=== PATIENT | female | born 1955 | race Caucasian/White ===

== ENCOUNTER → 2022-02-03 09:43 | Outpatient (BNVA) | payer MEDICARE, SELFPAY | PROVIDERS: Visit Provider Family Medicine Adult Medicine | DX: I10 Essential (primary) hypertension (principal); Z13.6 Encounter for screening for cardiovascular disorders; Z13.29 Encounter for screening for other suspected endocrine disorder; R42 Dizziness and giddiness | CPT/HCPCS: 80053; 83036; 84443; 85025 ==

== ENCOUNTER → 2022-02-09 11:01 | Outpatient (BNVA) | payer MEDICARE, SELFPAY | PROVIDERS: PCP Family Medicine Adult Medicine; Visit Provider Surgery | DX: K21.9 Gastro-esophageal reflux disease without esophagitis (principal); Z12.11 Encounter for screening for malignant neoplasm of colon | CPT/HCPCS: 99203 ==

== ENCOUNTER 2022-02-21 06:00 | Outpatient (RCR) | payer MEDICARE, SELFPAY | END 2022-02-27 23:59 | disposition home or self-care (01) | LOC: SPT 06:00 | PROVIDERS: PCP Family Medicine Adult Medicine; Referring Provider Family Medicine Adult Medicine; Visit Provider Family Medicine Adult Medicine | DX: M54.50 Low back pain, unspecified (principal); G89.29 Other chronic pain | CPT/HCPCS: 97161 ==

== ENCOUNTER 2022-03-31 06:00 | Outpatient (RCR) | payer MEDICARE, SELFPAY | END 2022-04-29 23:59 | disposition home or self-care (01) | LOC: SPT 06:00 | PROVIDERS: PCP Family Medicine Adult Medicine; Referring Provider Family Medicine Adult Medicine; Visit Provider Family Medicine Adult Medicine | DX: M54.50 Low back pain, unspecified (principal); G89.29 Other chronic pain | CPT/HCPCS: 97161 ==

== ENCOUNTER 2022-04-22 06:08 | Day surgery (SDC) | payer MEDICARE, SELFPAY ==
[2022-04-20 12:26] VITALS: BMI 38.4
[2022-04-22 06:30] VITALS: BP 190/99; PULSE 104; RESP 18; TEMP 36.3; O2SAT 98
[2022-04-22] MEDS: sodium chloride 0.9% 1,000 ML 30 ML IV (06:38)
--- NOTE | 2022-04-22 06:51 | ANES.PREANE2 ---
Pre-Anesthetic Assessment Height/Weight: Height 1.57 m Weight 95.254 kg Temp Pulse Resp BP Pulse Ox O2 Del Method 97.4 F L 104 H 18 190/99 98 04/22/22 06:30 04/22/22 06:30 04/22/22 06:30 04/22/22 06:30 04/22/22 06:30 04/22/22 06:30 Operation Date: 04/22/22 07:00 Proposed Procedures p EGD and colonscopy 90744, 27593,K21.9,Z12.11(Not Applicable) - Everett Arvizu DO s Colonoscopy(Not Applicable) - Everett Arvizu DO Last intake: Intake Last Liquid Date 04/21/22 Last Liquid Time 22:00 Last Solid Date 04/20/22 Last Solid Time 20:30 Social quit gum 3 months Exam alert, oriented x 3, clear to auscultation bilaterally and regular rate & rhythm Airway Submandibular: within normal limits Cervical ROM: within normal limits Mallampati: Class II History/ROS No significant history except as noted and No significant complaints Pulmonary Shortness of Breath sob with rest. with anxiety, exertion. for 1 month CV/HEM Murmur epigastric chest pain, dr rodriguez thinks it is reflux reflated. at rest None reported Hepatic None reported GI acid reflux, epigastric Metabolic Morbid Obesity [facility] [place] None reported Neuropsych Anxiety Anesthetic Plan ASA status: 3 Anesthesia: Anesthesia Evaluation and MAC Risk of > 500 ml blood loss (7ml/kg in children): Yes, adequate IV access and fluids planned Medications/Allergies Home Medications Medication Instructions Recorded Confirmed Last Taken Type acetaminophen 650 mg 650 mg PO Q8H PRN pain #90 tabs 02/02/22 04/20/22 Unknown Rx tablet,extended release lisinopril 20 mg tablet 20 mg PO BID Hypertension 90 days 02/02/22 04/20/22 04/21/22 Rx #180 tabs hydrochlorothiazide 25 mg tablet 25 mg PO DAILY PRN fluid 03/29/22 04/20/22 Unknown History ketoconazole 2 % shampoo 1 applic topical .2x weekly #120 mL 03/29/22 04/20/22 04/21/22 Rx mometasone 0.1 % topical solution 1 applic topical DAILY #60 mL 03/29/22 04/20/22 Unknown Rx nortriptyline 10 mg capsule 10 mg PO BEDTIME 04/21/22 04/22/22 04/18/22 History pantoprazole 40 mg tablet,delayed 40 mg PO BID 04/21/22 04/21/22 04/21/22 History release (Protonix) Allergies Allergy/AdvReac Type Severity Reaction Status Date / Time pregabalin [From Lyrica] Allergy Severe ADR-Halluci Verified 03/29/22 14:06 nating carisoprodol [From Soma] Allergy Intermediate ADR-Nausea Verified 03/29/22 14:06 ibuprofen Allergy Unknown Unknown Verified 03/29/22 14:06 Current Medications Generic Name Dose Route Start Last Admin Trade Name Freq PRN Reason Stop Dose Admin Sodium Chloride 1,000 mls @ 30 mls/hr 04/22/22 06:15 04/22/22 06:38 Sodium Chloride 0.9% IV 04/23/22 06:14 30 mls/hr .Q24H RAYMUNDO Administration PFSH Anesthesia Medical History Anxiety and depression Cataract Chronic back pain Chronic low back pain without sciatica Diabetes mellitus, new onset Hemoglobin A1c 6.8 on 02/03/2022. Dizziness and giddiness GERD (gastroesophageal reflux disease) Hx of basal cell carcinoma Hx of basal cell carcinoma nose Hypertension Plaque psoriasis TMJ (dislocation of temporomandibular joint) Upper back pain on right side Surgical History H/O dilation and curettage History of lumpectomy of both breasts Hx of appendectomy Family History Sister Cancer breast and bone, and brain Father CAD (coronary artery disease) Mother Alzheimer disease Spastic esophagus Social History Smoking and tobacco status: former smoker Quit status (tobacco): has quit using tobacco Year quit tobacco: 2018 Alcohol intake: never Lives independently: Yes Marital status: / Number of children: 3 Current occupational status: retired and disabled Data Anesthesia Cardiac Studies: No Data to Display
--- NOTE | 2022-04-22 06:56 | ECG_ITS ---
[facility] Test Date: 2022-04-22 Pat Name: Gabriella Coyle Department: Room: Gender: Female Billet Heater: : 1955 Requested By: Laureen Park Order Number: [id number] Naya MD: Linette Tyson M.D. Measurements Intervals [place] Rate: 77 P: 54 PA: 159 QRS: -5 QRSD: 100 T: 21 QT: 373 QTc: 424 Interpretive Statements SINUS RHYTHM POSSIBLE LEFT ATRIAL ENLARGEMENT [-0.1mV P-WAVE IN V1/V2] INCOMPLETE RIGHT BUNDLE BRANCH BLOCK [90+ ms QRS DURATION, TERMINAL R IN V1/V2, 40+ ms S IN I/aVL/V4/V5/V6] No previous ECG available for comparison Electronically Signed On 04-22-2022 16:30:48 CDT by Linette Tyson M.D. [id number]
--- NOTE | 2022-04-22 06:58 | PM.HP ---
Providers/Chief Complaint Primary Care Provider: Chavez Interiano MD Chief Complaint: gastro-esophageal reflux disease w/o esophagitis History of Present Illness Gabriella Coyle is a 67 year old female here for EGD and colonoscopy Medications/Allergies Home Medications Medication Instructions Recorded Confirmed Last Taken Type acetaminophen 650 mg 650 mg PO Q8H PRN pain #90 tabs 02/02/22 04/20/22 Unknown Rx tablet,extended release lisinopril 20 mg tablet 20 mg PO BID Hypertension 90 days 02/02/22 04/20/22 04/21/22 Rx #180 tabs hydrochlorothiazide 25 mg tablet 25 mg PO DAILY PRN fluid 03/29/22 04/20/22 Unknown History ketoconazole 2 % shampoo 1 applic topical .2x weekly #120 mL 03/29/22 04/20/22 04/21/22 Rx mometasone 0.1 % topical solution 1 applic topical DAILY #60 mL 03/29/22 04/20/22 Unknown Rx nortriptyline 10 mg capsule 10 mg PO BEDTIME 04/21/22 04/22/22 04/18/22 History pantoprazole 40 mg tablet,delayed 40 mg PO BID 04/21/22 04/21/22 04/21/22 History release (Protonix) Allergies Allergy/AdvReac Type Severity Reaction Status Date / Time pregabalin [From Lyrica] Allergy Severe ADR-Halluci Verified 03/29/22 14:06 nating carisoprodol [From Soma] Allergy Intermediate ADR-Nausea Verified 03/29/22 14:06 ibuprofen Allergy Unknown Unknown Verified 03/29/22 14:06 PFSH Acute PFSH: Medical History Anxiety and depression Cataract Chronic back pain Chronic low back pain without sciatica Diabetes mellitus, new onset Hemoglobin A1c 6.8 on 02/03/2022. Dizziness and giddiness GERD (gastroesophageal reflux disease) Hx of basal cell carcinoma Hx of basal cell carcinoma nose Hypertension Plaque psoriasis TMJ (dislocation of temporomandibular joint) Upper back pain on right side Surgical History H/O dilation and curettage History of lumpectomy of both breasts Hx of appendectomy Family History Sister Cancer breast and bone, and brain Father CAD (coronary artery disease) Mother Alzheimer disease Spastic esophagus Social History Smoking and tobacco status: former smoker Quit status (tobacco): has quit using tobacco Year quit tobacco: 2018 Alcohol intake: never Lives independently: Yes Marital status: / Number of children: 3 Current occupational status: retired and disabled Vitals/I&O/Wt Last Vital Signs Temp 97.4 F L 04/22/22 06:30 Pulse 104 H 04/22/22 06:30 Resp 18 04/22/22 06:30 BP 190/99 04/22/22 06:30 Pulse Ox 98 04/22/22 06:30 O2 Del Method 04/22/22 06:30 Weight last 48 hrs Weight 210 lb A&P Assessment and plan (1) Colon cancer screening: Status: Acute (2) GERD (gastroesophageal reflux disease): Status: Acute Plan EGD and colonoscopy Attestations Medical Necessity Statement*: Home Coding Level of Care Code Acute Aquatic Performer for Chg Fwd Diagnoses Colon cancer screening Z12.11 GERD (gastroesophageal reflux disease) K21.9
--- NOTE | 2022-04-22 07:55 | PM.MISC ---
Miscellaneous Note Note: Discussed patient's recurrent episodes of chest pain (atypical located lower L rib cage and over lower sternum) and episodes of shortness of breath with activity in setting of MO, pre-DM, hx of smoking, and family history of early CAD (brother had bypass at age 45) and risk of anesthesia. patient informed that endoscopies are lower risk procedures, but risk is still elevated if CAD hasn't been ruled out before proceeding. Gave patient option of proceeding with unknown risk or rescheduling for after a visit with a property man. Patient elected to reschedule.
== END 2022-04-22 08:06 | disposition home or self-care (01) ==
LOC: GILAB 06:11
PROVIDERS: PCP Family Medicine Adult Medicine; Visit Provider Surgery
PROC: 0DJ08ZZ Inspection of Upper Intestinal Tract, Via Natural or Artificial Opening Endoscopic (ICD-10-PCS; CPT 43235; principal; 2022-04-22 07:00)
PROC: 0DJD8ZZ Inspection of Lower Intestinal Tract, Via Natural or Artificial Opening Endoscopic (ICD-10-PCS; CPT 45378; 2022-04-22 07:00)
DX: Z12.11 Encounter for screening for malignant neoplasm of colon (principal); K21.9 Gastro-esophageal reflux disease without esophagitis; Z53.8 Procedure and treatment not carried out for other reasons; E11.9 Type 2 diabetes mellitus without complications; I10 Essential (primary) hypertension; Z87.891 Personal history of nicotine dependence
CPT/HCPCS: 93005; J7030

== ENCOUNTER → 2023-01-11 10:32 | Outpatient (BNVA) | payer MEDICARE, SELFPAY | PROVIDERS: PCP Family Medicine Adult Medicine; Visit Provider Nurse Practitioner Family | DX: L57.8 Other skin changes due to chronic exposure to nonionizing radiation (principal); L57.0 Actinic keratosis; L82.0 Inflamed seborrheic keratosis; L82.1 Other seborrheic keratosis; L85.3 Xerosis cutis; D22.5 Melanocytic nevi of trunk; L81.4 Other melanin hyperpigmentation; Z71.89 Other specified counseling | CPT/HCPCS: 17000; 17003; 17110; 99213 ==

== ENCOUNTER → 2023-03-20 14:26 | Outpatient (BNVA) | payer MEDICARE, SELFPAY | PROVIDERS: PCP Family Medicine Adult Medicine; Visit Provider Dermatology | DX: L82.0 Inflamed seborrheic keratosis (principal); L57.0 Actinic keratosis; L40.8 Other psoriasis; Z85.828 Personal history of other malignant neoplasm of skin | CPT/HCPCS: 17000; 17003; 17110; 99213 ==

== ENCOUNTER → 2023-09-05 13:30 | Outpatient (BNVA) | payer MEDICARE, SELFPAY | PROVIDERS: PCP Family Medicine Adult Medicine; Visit Provider Nurse Practitioner Family | DX: Z85.828 Personal history of other malignant neoplasm of skin (principal); L57.0 Actinic keratosis; L40.8 Other psoriasis; L21.8 Other seborrheic dermatitis | CPT/HCPCS: 17000; 99214 ==

== ENCOUNTER → 2024-01-09 10:45 | Outpatient (BNVA) | payer MEDICARE, SELFPAY | PROVIDERS: PCP Family Medicine Adult Medicine; Visit Provider Nurse Practitioner Family | DX: L40.0 Psoriasis vulgaris (principal); L57.0 Actinic keratosis; L21.8 Other seborrheic dermatitis; Z85.828 Personal history of other malignant neoplasm of skin | CPT/HCPCS: 17000; 99214 ==

== ENCOUNTER → 2024-05-22 15:18 | Outpatient (BNVA) | payer MEDICARE, SELFPAY | PROVIDERS: PCP Family Medicine Adult Medicine; Visit Provider Nurse Practitioner Family | DX: D22.5 Melanocytic nevi of trunk (principal); L82.0 Inflamed seborrheic keratosis; D48.5 Neoplasm of uncertain behavior of skin; L57.8 Other skin changes due to chronic exposure to nonionizing radiation; L57.0 Actinic keratosis | CPT/HCPCS: 11102; 17000; 17110; 99213 ==

== ENCOUNTER → 2024-11-05 08:22 | Outpatient (BNVA) | payer MEDICARE, SELFPAY | PROVIDERS: PCP Family Medicine Adult Medicine; Visit Provider Nurse Practitioner Family | DX: L40.0 Psoriasis vulgaris (principal); L57.8 Other skin changes due to chronic exposure to nonionizing radiation; L82.0 Inflamed seborrheic keratosis; Z78.9 Other specified health status; R58 Hemorrhage, not elsewhere classified; L57.0 Actinic keratosis | CPT/HCPCS: 17000; 17110; 99214 ==